=== PATIENT | male | born 1960 | race Caucasian/White ===

== ENCOUNTER 2020-02-02 05:46 | Emergency (ER) | payer BC ==
[2020-02-02] MEDS ORDERED: Sodium Chloride 0.9% 10 ML Syringe FLUSH PRN (05:57)
[2020-02-02] MEDS ORDERED: Ondansetron 4 MG/2 ML SDV IVPUSH ONE (05:57)
[2020-02-02] MEDS ORDERED: Ketorolac 30 MG/ML SDV IVPUSH ONE (05:57)
[2020-02-02] MEDS ORDERED: Sodium Chloride 0.9% 1,000 ML IV ONE (05:57)
--- NOTE | 2020-02-02 06:46 | EDM.PDOC ---
ED HPI GENERAL MEDICAL PROBLEM - General Chief Complaint: Abdominal Pain Stated Complaint: POSSIBLE KIDNEY STONE Time Seen by Provider: 02/02/20 06:00 Source of Information: Reports: Patient History Limitations: Reports: No Limitations - History of Present Illness INITIAL COMMENTS - FREE TEXT/NARRATIVE: Patient presented to the ED because, of sudden onset of left flank pain ra diating to the left groin and testicle. The pain is sharp, 10/10. There is associated nausea but no vomiting. He also have one episode of hematuria last night although she denies any dysuria, urgency and frequency. There is no fever/chills/, cough or cold. L upper abdomen radiating into flank & groin Pain Score (Numeric/FACES): 8 - Related Data Allergies Allergy/AdvReac Type Severity Reaction Status Date / Time No Known Allergies Allergy Verified 02/02/20 06:10 Home Meds: Home Meds Gabapentin 100 mg PO BEDTIME 05/11/15 [History] Ibuprofen [Motrin] 600 mg PO TID PRN #30 tab 05/11/15 [Rx] Acetaminophen/HYDROcodone [[place] 325-5 MG] 1 - 2 tab PO Q4H PRN #10 tab 02/02/20 [Rx] FLUoxetine HCl [Fluoxetine] 20 mg PO DAILY 02/02/20 [History] Tamsulosin HCl [Flomax] 0.4 mg PO DAILY #10 capsule 02/02/20 [Rx] Past Medical History HEENT History: Reports: Hard of Hearing Cardiovascular History: Reports: Hypertension Gastrointestinal History: Reports: GERD Genitourinary History: Reports: Renal Calculus Musculoskeletal History: Reports: Back Pain, Chronic Neurological History: Reports: Concussion Psychiatric History: Reports: Anxiety Endocrine/Metabolic History: Reports: Obesity/BMI 30+ - Infectious Disease History Infectious Disease History: Reports: Chicken Pox - Past Surgical History GI Surgical History: Reports: Appendectomy, Colonoscopy Male Surgical History: Reports: Kidney Stone Extraction Neurological Surgical History: Reports: Spinal Fusion Other Neurological Surgeries/Procedures: SI joint fusion Musculoskeletal Surgical History: Reports: Other (See Below) Other Musculoskeletal Surgeries/Procedures:: SI joint fusion Social & Family History - Family History Family Medical History: No Pertinent Family History - Tobacco Use Tobacco Use Status *Q: Never Tobacco User - Caffeine Use Caffeine Use: Reports: Coffee - Recreational Drug Use Recreational Drug Use: No ED ROS GENERAL - Review of Systems Review Of Systems: See Below Constitutional: Reports: No Symptoms HEENT: Reports: No Symptoms Respiratory: Reports: No Symptoms Cardiovascular: Reports: No Symptoms Endocrine: Reports: No Symptoms GI/Abdominal: Reports: Abdominal Pain : Reports: Hematuria Musculoskeletal: Reports: No Symptoms Skin: Reports: No Symptoms ED EXAM, RENAL/ - Physical Exam Exam: See Below General Appearance: Alert, No Apparent Distress Ears: Normal External Exam Nose: Normal Inspection, Normal Mucosa Throat/Mouth: Normal Inspection, Normal Lips Head: Atraumatic, Normocephalic Neck: Normal Inspection, Supple, Non-Tender, Full Range of Motion Respiratory/Chest: No Respiratory Distress, Lungs Clear, Normal Breath Sounds Cardiovascular: Normal Peripheral Pulses, Regular Rate, Rhythm, No Edema GI/Abdominal: Normal Bowel Sounds, Soft, No Organomegaly, Other (LCVAT) Back Exam: Normal Inspection, Full Range of Motion Extremities: Normal Inspection, Normal Range of Motion, Non-Tender Neurological: Alert, Oriented, CN II-XII Intact, Normal Cognition Psychiatric: Normal Affect Skin Exam: Warm Course - Vital Signs Text/Narrative:: Labs/CT abd/pelvis as discussed with patient NS 1 bolus Zofran 4 mg IV x1 Toradol 30 mg IV x1 Last Recorded V/S: Last Vital Signs Temp 35.3 C L 02/02/20 05:46 Pulse 64 02/02/20 05:46 Resp 22 H 02/02/20 05:46 BP 150/93 H 02/02/20 05:46 Pulse Ox 99 02/02/20 05:46 - Orders/Labs/Meds Orders: Active Orders 24 hr Category Date Time Status Abdomen Pelvis wo Cont [CT] Stat Exams 02/02/20 06:13 Taken Sodium Chloride 0.9% [Saline Flush] Med 02/02/20 05:57 Active 10 ml FLUSH ASDIRECTED PRN Peripheral IV Insertion Adult [OM.PC] Routine Oth 02/02/20 05:56 Ordered Medication Orders Sodium Chloride (Saline Flush) 10 ml FLUSH ASDIRECTED PRN PRN Reason: Keep Vein Open Labs: Laboratory Tests 02/02/20 02/02/20 Range/Units 05:55 06:00 WBC 8.5 (3.2-10.1) x10-3/uL RBC 5.43 (3.90-5.90) x10(6)uL Hgb 16.0 (12.9-17.7) g/dL Hct 47.7 (38.3-50.1) % MCV 87.8 (80.8-98.7) fL MCH 29.5 (27.0-33.3) pg MCHC 33.6 (28.7-35.3) g/dL RDW 13.6 (12.4-15.0) % Plt Count 208 (117-477) x10(3)uL MPV 8.5 (6.7-11.0) fL Neut % (Auto) 80.7 H (40.3-71.8) % Lymph % (Auto) 10.7 L (15.8-45.3) % [place] % (Auto) 5.2 L (5.5-15.2) % Eos % (Auto) 2.7 (0.1-6.8) % Baso % (Auto) 0.7 (0.3-3.8) % Neut # (Auto) 6.8 (1.7-6.9) x10-3/uL Lymph # (Auto) 0.9 (0.5-4.5) x10-3/uL [place] # (Auto) 0.4 (0.0-1.2) x10-3/uL Eos # (Auto) 0.2 (0.0-0.6) x10-3/uL Baso # (Auto) 0.1 (0.0-0.3) x10-3/uL Urine Color Yellow (YELLOW) Urine Appearance Cloudy (CLEAR) Urine pH 5.0 (5.0-6.5) Ur Specific [place] 1.020 (1.010-1.025) Urine Protein Trace (NEGATIVE) mg/dL Urine Glucose (UA) Normal (NORMAL) mg/dL Urine Ketones Negative (NEGATIVE) mg/dL Urine Occult Blood Large H (NEGATIVE) Urine Nitrite Negative (NEGATIVE) Urine Bilirubin Negative (NEGATIVE) Urine Urobilinogen Normal (NEGATIVE) mg/dL Ur Leukocyte Esterase Negative (NEGATIVE) Urine RBC Packed H (0-5) Urine WBC 0-5 (0-5) Ur Squamous Epith Cells Few H (NS,R,O) Urine Bacteria Few H (NS) Meds: Medications Generic Name Dose Route Start Last Admin Trade Name Freq PRN Reason Stop Dose Admin Sodium Chloride 10 ml 02/02/20 05:57 Saline Flush FLUSH ASDIRECTED PRN Keep Vein Open Discontinued Medications Generic Name Dose Route Start Last Admin Trade Name Kenny PRN Reason Stop Dose Admin Sodium Chloride 1,000 mls @ 999 mls/hr 02/02/20 05:57 02/02/20 06:30 Normal Saline IV 02/02/20 06:57 999 mls/hr .BOLUS ONE Administration Ketorolac Tromethamine 30 mg 02/02/20 05:57 02/02/20 06:06 Toradol IVPUSH 02/02/20 05:58 30 mg ONETIME ONE Administration Ondansetron HCl 4 mg 02/02/20 05:57 02/02/20 06:04 Zofran IVPUSH 02/02/20 05:58 4 mg ONETIME ONE Administration Departure - Departure Time of Disposition: 07:30 Disposition: Home, Self-Care 01 Condition: Good Clinical Impression: Nephrolithiasis - Discharge Information Prescriptions: Tamsulosin HCl [Flomax] 0.4 mg PO DAILY #10 capsule Acetaminophen/HYDROcodone [[place] 325-5 MG] 1 - 2 tab PO Q4H PRN #10 tab PRN Reason: Pain Instructions: Kidney Stones, [id number] Referrals: PCP,None [Ordering Only Provider] - Forms: ED Department Discharge Additional Instructions: Please read discharge instructions on nephrolithiasis Increase oral fluids at least 2-3 liters a day Flomax 1 tablet daily until your pain is gone [place]/5/325, 1-2 tablets every 4-6 hours as needed for pain Follow up this Saturday or Saturday with your doctor Sepsis Event Note (ED) - Evaluation Sepsis Screening Result: No Definite Risk - Focused Exam Vital Signs: Vital Signs Temp Pulse Resp BP Pulse Ox 02/02/20 05:46 35.3 C L 64 22 H 150/93 H 99 - My Orders Last 24 Hours: My Active Orders 02/02/20 05:56 Peripheral IV Insertion Adult [OM.PC] Routine 02/02/20 05:57 Sodium Chloride 0.9% [Saline Flush] 10 ml FLUSH ASDIRECTED PRN 02/02/20 06:13 Abdomen Pelvis wo Cont [CT] Stat - Assessment/Plan Last 24 Hours: My Active Orders 02/02/20 05:56 Peripheral IV Insertion Adult [OM.PC] Routine 02/02/20 05:57 Sodium Chloride 0.9% [Saline Flush] 10 ml FLUSH ASDIRECTED PRN 02/02/20 06:13 Abdomen Pelvis wo Cont [CT] Stat
[2020-02-02 07:45] VITALS: BP 123/85; PULSE 63
== END 2020-02-02 07:36 | disposition home or self-care (01) ==
LOC: FB.ED 05:46
DX: K80.20 Calculus of gallbladder without cholecystitis without obstruction (principal); N13.2 Hydronephrosis with renal and ureteral calculous obstruction; F41.9 Anxiety disorder, unspecified; I10 Essential (primary) hypertension; E66.9 Obesity, unspecified; Z68.31 Body mass index [BMI] 31.0-31.9, adult; Z79.899 Other long term (current) drug therapy
CPT/HCPCS: 36415; 74176; 80048; 81001; 85025; 96374; 96375; 99284-25; J1885; J2405; J7030